=== PATIENT | female | born 1990 | race Hispanic/Latino ===

== ENCOUNTER 2016-07-26 02:11 | Inpatient (IN) | payer OTHER ==
[~2016-07-26] VITALS: Ht 156.2 cm; Wt 98.0 kg
[~2016-07-26 02:11] MED LIST: CEPH-512 PO; ONDA4TAB9 PO; PENI500T PO; PREN-100 PO
[2016-07-26] MEDS ORDERED: Lactated Ringer's 1,000 ML IV PRN (02:43)
[2016-07-26] MEDS ORDERED: Hemorrhage Kit, Post Partum XX ONE ×2 (02:45→04:40)
[2016-07-26] MEDS ORDERED: Oxytocin 10 Unit/mL Inj IM PRN ×2 (02:45→04:40)
[2016-07-26] MEDS ORDERED: Oxytocin 30 Units/500 mL LR 30 UNITS in IV Premix 1 EACH IV PRN ×2 (02:45→04:40)
[2016-07-26] MEDS ORDERED: Methylergonovine 0.2 mg/mL Inj IM PRN ×2 (02:45→04:40)
[2016-07-26] MEDS ORDERED: Ondansetron 2 mg/mL 2 mL Inj IVPUSH PRN (02:45)
[2016-07-26] MEDS ORDERED: Sodium Chloride LOK Flush 10 mL Syringe IVFLUSH PRN (02:45)
[2016-07-26] MEDS ORDERED: fentaNYL-PF 50 mCg/mL 2 mL Inj IVPUSH PRN (02:45)
[2016-07-26] MEDS ORDERED: Carboprost 250 mCg/mL Inj IM PRN ×2 (02:45→04:40)
[2016-07-26 02:54] LABS: Mean Corpuscular Hemoglobin 28.7 pg (27.0-35.0); Mean Corpuscular Volume 89.3 fL (81-100)
[2016-07-26] MEDS ORDERED: Benzocaine (Dermoplast) 20% 60 Gm Spray TOPICAL PRN (04:40)
[2016-07-26] MEDS ORDERED: Witch Hazel-Glycerin Pads TOPICAL PRN (04:40)
--- NOTE | 2016-07-26 04:59 | OP ---
[address] [address] OPERATIVE REPORT PATIENT: KENYETTA ZHANG : 1990 MR#: [id number] ADMIT: 07/26/2016 JOB ID: [id number] DATE OF SURGERY: SURGEON: PREOPERATIVE DIAGNOSIS(ES): POSTOPERATIVE DIAGNOSIS(ES): PROCEDURE: 1. Normal spontaneous vaginal delivery over an intact perineum. 2. Physician: Myself. 3. Anesthesia: None. 4. Baby: Vigorous female at . Apgars 8 and 9 at one and five minutes respectively. Weight is currently pending. 5. Uterus: Spontaneous delivery of the placenta. No manual exploration of the uterus. 6. Estimated blood loss: 200 cc. DESCRIPTION: The patient is a 25-year-old, G3, P2, with previous last delivery with a three hour labor, who presented at about 02:30 with 3 cm dilation for cervical check for contractions. She progressed about 3 cm over the next hour and had been admitted. She progressed rapidly to complete. Had artificial rupture of membranes of clear fluid. The second stage of labor was approximately four or five contractions with rapid descent of the baby and uncomplicated delivery. Baby was vigorous and placed on the mother's abdomen. There was delayed cord clamping. Currently, mother and baby are doing well in recovery.
[2016-07-26] MEDS: Lactated Ringer's 1,000 ML IV SCH (09:53)
[2016-07-26] MEDS: HYDROcodone-APAP 5-325 mg Tablet PO PRN ×3 (11:45→21:45)
--- NOTE | 2016-07-27 07:38 | PCM.DC.OB ---
Obstetrical Discharge Summary Date of Service Jul 27, 2016 Date of hospital admission Jul 26, 2016 at 02:24 Date of Discharge: Jul 27, 2016 Providers Admitting Physician: Franck Escalante MD Primary Care Physician: Lia Dial MD Attending Physician: Franck Escalante MD Problems: (1) Qualifiers: Weeks of gestation: 39 weeks Qualified Code: Z3A.39 - 39 weeks gestation of Status: Resolved ICD Code: Z33.1 Hospital Course: Doing well. . Uncertain contraception. Plans to follow up at clinic. Questions about paternity. Cephalexin (Keflex) 500 Mg Capsule 500 MG PO QID Prescribed by: OLEG BROWN Ondansetron ODT (Zofran ODT) 4 Mg Tablet 4 MG PO Q4H PRN PRN For Nausea ( Reported) Penicillin V Potassium (Penicillin V Potassium) 500 Mg Tablet 500 MG PO BID Prescribed by: OLEG BROWN Vits #90/Iron Fum/FA ( Formula Tablet) 1 Each Tablet 1 EACH PO (Reported) Disposition Home Discharge Diet: No restrictions Discharge Activity-General: No restrictions, Try not to overdue Patient instructions Watch for excessive bleeding, pain, painful red breasts, constipation. Franck Escalante MD Jul 27, 2016 07:38
[2016-07-27 07:48] LABS: Mean Corpuscular Hemoglobin 29.4 pg (27.0-35.0); Mean Corpuscular Volume 91.4 fL (81-100)
--- NOTE | 2016-07-27 07:56 | PCM.DIOB ---
Obstetrical Disch Instruction Dates of Hospitalization Date of Hospital Admission Jul 26, 2016 at 02:24 Providers Admitting Physician: Franck Escalante MD Primary Care Physician: Lia Dial MD Attending Physician: Franck Escalante MD Discharge Diagnosis Problems: (1) Qualifiers: Weeks of gestation: 39 weeks Qualified Code: Z3A.39 - 39 weeks gestation of Status: Resolved ICD Code: Z33.1 (2) Term Status: Resolved ICD Code: Z34.80 Diet Discharge Diet: No restrictions Activity Discharge Activity-General: No restrictions, Pelvic Rest for 6 weeks, Try not to overdue, Be up and about, Activity as energy allows Dressing and Incisional Care Hygiene: May shower Additional Instructions Discharge Instructions Watch for excessive bleeding, pain, painful red breasts, constipation. Follow Up Plan Call your provider for: Fever or Chills, Shortness of breath, Heavy vaginal bleeding, Heavy bleeding, Epigastric pain, Excessive constipation, Vaginal discomfort, Red painful breasts Franck Escalante MD Jul 27, 2016 07:56
[2016-07-27] MEDS ORDERED: IBUP800T28 PO (07:57)
[2016-07-27] MEDS ORDERED: HYDR-4003 PO (07:57)
--- NOTE | 2016-07-27 08:22 | DIS ---
[address] [address] DISCHARGE SUMMARY PATIENT: KENYETTA ZHANG : 1990 MR#: [id number] ADMIT: 07/26/2016 JOB ID: [id number] DIS: 07/27/2016 ADMISSION DIAGNOSIS: Active labor at 39 weeks. DISCHARGE DIAGNOSIS: Normal spontaneous vaginal delivery at term without complication. BRIEF HISTORY AND PHYSICAL: The patient is a 25-year-old G 3, P 2, with good dates and relatively unremarkable care except for concerns about paternity. She presented to Labor and Delivery with contractions and a history of a precipitous labor in the past. She had rapid progression from there. HOSPITAL COURSE: The patient had a precipitous labor and rapid delivery without complications. Overnight she has been eating well. She has felt tired but not exactly dizzy. She had a little bit of low blood pressure at one point. She has had one more heavy clot, but then improving lochia from there. She is breast-feeding which is causing some cramping. She is uncertain about control but is considering the IUD. DISCHARGE MEDICATIONS: 1. Motrin 800 three times a day as needed, #30. 2. Vicodin 5/325, 1-2 t.i.d. p.r.n., dispensed 20. 3. vitamins. DISCHARGE DISPOSITION: Home unless there is a decision for her baby to stay longer. There are some feeding concerns there. DISCHARGE DIET: Regular.
[2016-07-27 11:27] VITALS: BP 96/59; PULSE 77; RESP 16
[2016-07-27] MEDS: Lactated Ringer's 1,000 ML IV SCH (12:40)
== END 2016-07-27 15:10 | disposition home or self-care (01) | DRG 775 ==
LOC: FBCO 02:11 → FBC 02:24
PROVIDERS: ADMIT Family Medicine; ATTEND Family Medicine
PROC: 10E0XZZ Delivery of Products of Conception, External Approach (ICD-10-PCS; principal; 2016-07-26)
PROC: 10907ZC Drainage of Amniotic Fluid, Therapeutic from Products of Conception, Via Natural or Artificial Opening (ICD-10-PCS; 2016-07-26)
DX: O62.3 Precipitate labor (principal); Z3A.39 39 weeks gestation of pregnancy; Z37.0 Single live birth

== ENCOUNTER 2017-03-07 09:40 | Emergency (ER) | payer OTHER ==
[~2017-03-07] VITALS: Ht 160 cm; Wt 81.8 kg
[~2017-03-07 09:40] MED LIST changes: +HYDR-4003 PO; +IBUP800T28 PO
[2017-03-07 09:46] VITALS: BP 120/73; PULSE 79; RESP 18; O2SAT 100
[2017-03-07] MEDS ORDERED: 0.9% Sodium Chloride 1,000 ML IV ONE ×3 (09:53→13:10)
--- NOTE | 2017-03-07 09:53 | ED.REPORT ---
HPI-Syncope Date of Service Mar 07, 2017 ED Provider: Vasu Briones MD The patient is a 26 year old female with a history of syncopal episodes during pregnancies, UTI, and pelvic inflammatory disease presenting to the ED from urgent care complaining of dizziness onset of 0840 this morning while sitting in class. The dizziness worsens when she sits up or walks around. The patient states she may have lost consciousness after feeling dizzy for "a while". Associated symptoms include difficulty hearing from her right ear and nausea. The patient denies chest pain, dyspnea, fever, or any other symptoms. She claims to have felt like this 3 years ago. She was fully worked up and was told she was dehydrated. The patient reports having a yeast infection a week ago and taking antifungal medication, which she finished yesterday. She also admits to being on control. Nursing Notes Stated Complaint: DIZZY/BRIEF LOC Chief Complaint: Neuro Symptoms/ Deficits Nursing Notes Reviewed: Yes Allergies: Coded Allergies: No Known Allergies (Verified , 03/07/17) No Active Prescriptions or Reported Meds General Time Seen by Provider: 09:47 Chief Complaint Other (Dizziness) Hx Obtained From: Patient Arrived By: Walk-in Onset Occurred: 1 - 4 hours ago Symptom Duration: Since onset Severity: Current: No pain currently Severity: Maximum: No pain Associated with: Denies: Chest pain, Fever Pertinent Negative: Pt denies other symptoms Exacerbated by: Movement Related History: Reports: Syncope Immunizations: Unknown Similar Sx Previous: Yes Past Medical History Past Medical History Cholelithiasis Migraines Past Surgical History Reports: Cholecystectomy Family History noncontributory Smoking History Former Smoker Social History Alcohol Use: Denies alcohol use Drug Use: Denies drug use Other Social History: Good social support, Lives with children, Local resident Ambulatory Status Independent Review of Systems Constitutional: Denies: Fever Ears / Nose / Throat: Reports: Hearing loss right Respiratory: Denies: Dyspnea on exertion, Shortness of breath Cardiovascular: Denies: Chest pain GI: Reports: Nausea Neurologic: Reports: Dizziness Complete sys rev & neg: except as marked. Physical Exam Initial Vital Signs Vital Signs (First) Date Time Temp Pulse Resp B/P Pulse Ox O2 Delivery O2 Flow Rate FiO2 03/07/17 09:46 36.9 79 18 120/73 100 Room Air Initial VS: Reviewed, Vital signs normal Skin: Warm, Dry General/Constitutional: Awake, Alert, Well developed, Well nourished Respiratory / Chest: Atraumatic, Breath sounds NL, Breath sounds = bilat, No respiratory distress Cardiovascular: Heart rate NL, Regular rhythm, Heart sounds NL, No murmurs Lower Extremity / Pelvis / MS: Atraumatic Neurologic: Oriented X3, Speech NL, CN II - XII intact Bszrzn-crtf-nwjgaf and heel to chandler intact Colleen-hallpike worsens symptoms. Head / Eyes: Atraumatic, Normocephalic, No nystagmus ENT: Atraumatic mild effusion right TM, no erythema Neck: Atraumatic, Supple, Full range of motion Abdomen: Atraumatic, Soft, Non-tender Interpretation & Diagnostics Lab Results Interpretation Result Diagram: 03/07/17 1030 03/07/17 1030 Test 03/07/17 10:30 03/07/17 11:16 White Blood Count 5.7th/mm3 (3.8-10.1) Red Blood Count 4.46mil/mm3 (3.90-5.20) Hemoglobin 13.4g/dL (12.0-15.6) Hematocrit 39.6% (35.0-46.0) Mean Corpuscular Volume 88.8fL (81-100) Mean Corpuscular Hemoglobin 30.0pg (27.0-35.0) Mean Corpuscular Hemoglobin Concent 33.8% (32.0-37.0) Red Cell Distribution Width 13.1% (12.3-15.4) Platelet Count 233bil/L (150-400) Neutrophils (%) (Auto) 67.0% (40-74) Lymphocytes (%) (Auto) 25.9% (14-46) Monocytes (%) (Auto) 5.8% (4-12) Eosinophils (%) (Auto) 0.7% (0-5) Basophils (%) (Auto) 0.4% (0-3) Sodium Level 137mEq/L (134-144) Potassium Level 4.0mEq/L (3.5-5.2) Chloride Level 102mEq/L (97-108) Carbon Dioxide Level 21mmol/L (18-29) Blood Urea Nitrogen 9mg/dL (6-20) Creatinine 0.75mg/dL (0.57-1.00) Estimat Glomerular Filtration Rate 132mL/min (>59) Glucose Level 96mg/dL (60-99) Calcium Level 8.7mg/dL (8.5-10.1) Magnesium Level 2.0mg/dL (1.6-2.6) Total Bilirubin 0.5mg/dL (0.0-1.2) Aspartate Amino Transf (AST/SGOT) 15U/L (0-50) Alanine Aminotransferase (ALT/SGPT) 11U/L (0-32) Alkaline Phosphatase 66U/L (25-150) Troponin T 0.010ug/L (0.0-0.011) Total Protein 7.3g/dL (6.4-8.4) Albumin 3.9g/dL (3.4-5.0) Urine Color Yellow (YELLOW) Urine Appearance Hazy (CLEAR,HAZY) Urine pH 6.0 (5.0-8.0) Urine Specific Aiken 1.010 (1.003-1.035) Urine Protein Negativemg/dL (NEG,TRACE) Urine Glucose (UA) Negativemg/dL (NEGATIVE) Urine Ketones Negativemg/dL (NEGATIVE) Urine Occult Blood Negative (NEGATIVE) Urine Nitrite Negative (NEGATIVE) Urine Bilirubin Negative (NEGATIVE) Urine Urobilinogen Normalmg/dL (NORMAL) Urine Leukocyte Esterase Small (NEGATIVE) Urine RBC 0-2/hpf (0-2) Urine WBC 0-5/hpf (0-5) Urine Epithelial Cells Many/hpf (NONE-MOD) Urine Crystals None seen (NONE SEEN) Urine Bacteria Few/hpf (NONE-FEW) Urine Hyaline Casts None/lpf (NONE) Urine Granular Casts None seen (NONE SEEN) Urine Waxy Casts None seen (NONE SEEN) Urine Red Blood Cell Casts None seen (NONE SEEN) Urine White Blood Cell Casts None seen (NONE SEEN) Urine Mucus None seen (None Seen) Urine Trichomonas None seen (NONE SEEN) Urine Yeast None (NONE SEEN) Urinalysis Comment None Urine Culture Reflexed Indicated Hold Urine Received (Received) ECG Interpretation ECG Interpretation: sinus rate of [address] elevation in all leads Time: 10:07 Interpreted by: ED physician X-Ray Chest Interpretation Chest Xray Interpretation: IMPRESSION: 1. No acute cardiopulmonary disease. Dictated by: Santosh Watson M.D. on 03/07/2017 at 10:19 Approved by: Santosh Watson M.D. on 03/07/2017 at 10:20 Interpretation / Wet Read by: Interpret - Radiologist NL X-Ray Chest Findings: No acute disease CT Head Interpretation IMPRESSION: Negative head CT. No acute intracranial hemorrhage. Dictated by: Carmelo Hooks M.D. on 03/07/2017 at 11:56 Approved by: Carmelo Hooks M.D. on 03/07/2017 at 11:57 Study: Head CT no contrast Interpretation / Wet Read by: Interpret - Radiologist Re-Eval/Medical Decision Med Decision/Clinical Course 26-year-old female presenting complaining of dizziness and syncopal event earlier today. She has previous history of syncopal events. She was dizzy on arrival. This resolved with 3 L normal saline. Her workup was normal. She had normal CT brain, EKG, troponins, labs. Her orthostatics showed an elevation in heart rate no drop in blood pressure. Unclear etiology. I did offer the patient admission. She had no cardiac prodrome. She declines admission. She will follow-up with her primary doctor. Return precautions given. She may benefit from a Holter monitor as an outpatient given her recurrent syncopal events. Re-Evaluation/Progress : Time of Eval: 13:04 )( Re-Eval Neurologic Exam: Alert Re-Evaluation/Progress Note: Patient rechecked. Discussed plan to discharge. Patient understands and agrees with plan. All questions addressed at this time Counseled Regarding: Diagnosis, Lab results, Need for follow-up, When/why to return to ED Discharge & Departure Impression: Primary Impression: Syncope Syncope type: unspecified Qualified Code: R55 - Syncope and collapse Disposition: Home Discharge Condition All VS Reviewed: Yes Condition: Stable Patient Instructions: Syncope (ED) Additional Instructions: Thank you for entrusting us with you care. Your X ray, CT, EKG, labs, and examination are reassuring. We did not find a dangerous cause for your symptoms at this time. Follow up with you primary doctor in 1-2 days for reevaluation. Return to the Emergency Department for chest pain, loss of consciousness, difficulty walking, blurred vision, any weakness, tingling, or numbness if your legs, difficulty breathing, or any new or concerning symptoms. Referrals: Lia Dial MD (PCP) Scribe Attestation Portions of this note were transcribed by Vicenta Briones and Keith Ngo. I, Dr. Briones personally performed the history, physical exam and medical decision-making; I reviewed and confirmed the accuracy of the information in the transcribed note. Signed by: Sapna Zuniga, 03/07/2017 copies to: Lia Dial MD, Ben M MD Mar 07, 2017 09:53 Mar 07, 2017 10:32 VICENTA BRIONES Mar 07, 2017 11:49
[2017-03-07 10:01] VITALS: BP 111/69; PULSE 77; RESP 12
--- NOTE | 2017-03-07 10:22 | DRSVH ---
PROCEDURE: X-RAY CHEST ONE VIEW, PORTABLE ([id number]) INDICATIONS: syncope TECHNIQUE: One view of the chest was acquired. COMPARISON: None. FINDINGS: Surgical changes and devices: None. Lungs and pleura: No pleural effusions or pneumothorax. Lungs are clear. Mediastinum: Mediastinal contours appear normal. Heart size is normal. Bones and chest wall: No suspicious bony lesions. Overlying soft tissues appear unremarkable. IMPRESSION: 1. No acute cardiopulmonary disease. Dictated by: Santosh Watson M.D. on 03/07/2017 at 10:19 Approved by: Santosh Watson M.D. on 03/07/2017 at 10:20
[2017-03-07 10:48] LABS: BASOPHILS % (AUTO) 0.4 % (0-3); EOSINOPHILS % (AUTO) 0.7 % (0-5); MONOCYTES % (AUTO) 5.8 % (4-12); Mean Corpuscular Volume 88.8 fL (81-100); Platelet Count 233 bil/L (150-400)
[2017-03-07 11:13] LABS: TROPONIN T 0.01 ug/L (0.0-0.011)
[2017-03-07 12:33] LABS: APPEARANCE,URINE HAZY (CLEAR,HAZY); COLOR,URINE YELLOW (YELLOW); OCCULT BLOOD,URINE NEGATIVE (NEGATIVE); UROBILINOGEN,URINE NORMAL (NORMAL)
--- NOTE | 2017-03-07 12:59 | DRSVH ---
PROCEDURE: CT BRAIN WITHOUT CONTRAST ([id number]) INDICATIONS: syncope TECHNIQUE: Noncontrast 4.5 mm thick angled axial sections acquired from the foramen magnum to the vertex, with c oronal reformats. COMPARISON: [facility], CT, BRAIN W/O CONTRAST, 10/27/2007, 20:38. FINDINGS: Image quality: Diagnostic. CSF spaces: Basal cisterns are patent. No extra-axial fluid collections. Ventricles are normal in size and shape. Brain: No midline shift. No intracranial masses or hemorrhage. Goldstein-white matter interface is norm al. Skull and face: Calvarium and visualized facial bones are intact, without suspicious lesions. Sinuses: Visualized sinuses and mastoids are clear. IMPRESSION: Negative head CT. No acute intracranial hemorrhage. Dictated by: Carmelo Hooks M.D. on 03/07/2017 at 11:56 Approved by: Carmelo Hooks M.D. on 03/07/2017 at 11:57
[2017-03-07 13:47] VITALS: BP 109/66; PULSE 78; RESP 14; O2SAT 100
[2017-03-07 14:15] VITALS: BP 109/66; PULSE 78; RESP 14; O2SAT 100
== END 2017-03-07 14:16 | disposition home or self-care (01) ==
LOC: SED 09:40
DX: R55 Syncope and collapse (principal); H91.91 Unspecified hearing loss, right ear; G43.909 Migraine, unspecified, not intractable, without status migrainosus; Z87.440 Personal history of urinary (tract) infections; Z90.49 Acquired absence of other specified parts of digestive tract; Z87.891 Personal history of nicotine dependence
CPT/HCPCS: 36415; 70450; 71010; 80053; 81000; 81025; 83735; 84484; 85025; 87086; 87088; 93005; 96360; 96361; 99285; G0463; J7030